=== PATIENT | female | born 1995 ===

== ENCOUNTER 2017-02-11 22:29 | Emergency (ER) | payer MEDICAID ==
[2017-02-11] MEDS ORDERED: Iohexol 240 (50 ml) PO STA (23:29)
[2017-02-11 23:46] LABS: BASO # 0.1 K/uL (0.0-0.2); BASO % 0.5 % (0.0-2.0); EOS # 0.3 K/uL (0.0-0.7); LYMPH # 5.5 K/uL (1.0-4.3); LYMPH % 40.6 % (20.0-40.0); MEAN CELL VOLUME 79.4 fL (81.0-99.0); MEAN CORPUSCULAR HEMOGLOBIN 25.3 pg (27.0-31.0); MEAN CORPUSCULAR HGB CONC 31.9 g/dL (33.0-37.0); MEAN PLATELET VOLUME 9.1 fL (7.2-11.7); MONO # 1.4 K/uL (0.0-0.8); MONO % 10.6 % (0.0-10.0); RED CELL DISTRIBUTION WIDTH 13.8 % (11.5-14.5); WHITE BLOOD COUNT 13.6 K/uL (4.8-10.8)
[2017-02-11 23:55] LABS: CHLORIDE 100 mmol/L (98-107); POTASSIUM 3.6 mmol/L (3.6-5.2); SODIUM 140 mmol/L (132-148)
[2017-02-11 23:57] LABS: ALB/GLOB RATIO 1.2 (1.0-2.1); AST/SGOT 85 U/L (14-36); BILIRUBIN,TOTAL 0.4 mg/dL (0.2-1.3); CARBON DIOXIDE 27 mmol/L (22-30); GFR AFRICAN-AMERICAN > 60; TOTAL PROTEIN 7.9 g/dL (6.3-8.3)
[2017-02-11 23:58] LABS: ALKALINE PHOSPHATASE 111 U/L (38-126); ALT/SGPT 138 U/L (9-52); BLOOD UREA NITROGEN 9 mg/dL (7-17); CALCIUM 9.2 mg/dl (8.6-10.4); GLUCOSE,RANDOM 88 mg/dL (65-105)
[2017-02-12 00:20] LABS: RBC URINE 2 /hpf (0-3); URINE BILIRUBIN NEGATIVE (NEGATIVE); URINE COLOR Yellow (YELLOW); URINE GLUCOSE (UA) NORMAL (Normal); URINE KETONE TRACE mg/dL (NEGATIVE); URINE LEUKOCYTE ESTERASE NEG Leu/uL (Negative); URINE PROTEIN NEGATIVE (NEGATIVE); URINE UROBILINOGEN NORMAL mg/dL (0.2-1.0); WBC URINE < 1 /hpf (0-5)
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
[2017-02-12] MEDS ORDERED: Iohexol 240 (50 ml) ONE (00:30)
[2017-02-12] MEDS ORDERED: Iohexol 350mg/ml 100 ML ONE (01:00)
[2017-02-12 01:08] LABS: URINE BLOOD TRACE (NEGATIVE)
[2017-02-12 02:09] VITALS: O2SAT 100
--- NOTE | 2017-02-12 02:51 | CT ---
EXAM: CT Abdomen and Pelvis With Intravenous Contrast CLINICAL HISTORY: 21 years old, female; Pain; Abdominal pain; Additional info: Abd pain TECHNIQUE: Axial computed tomography images of the abdomen and pelvis with intravenous contrast. This CT exam was performed using one or more of the following dose reduction techniques: automated exposure control, adjustment of the mA and/or kV according to patient size, and/or use of iterative reconstruction technique. Coronal and sagittal reformatted images were created and reviewed. CONTRAST: 100 mL of [id number] administered intravenously. EXAM DATE/TIME: 02/11/2017 11:29 PM COMPARISON: No relevant prior studies available. FINDINGS: The liver is normal. The spleen is normal. The pancreas is normal. No gallstones. No hydronephrosis or perinephric stranding. The bowel appears normal. A normal appendix is identified coronal images 63 through 67, axial images 53 through 59. Small scattered lymph nodes are noted in the periaortic region and right lower abdomen. IMPRESSION: No acute findings.
[2017-02-12 03:58] VITALS: BP 121/70; PULSE 92; RESP 20; TEMP 97.1
== END 2017-02-12 03:58 | disposition home or self-care (01) ==
LOC: C.ER 22:29
DX: N93.9 Abnormal uterine and vaginal bleeding, unspecified (principal)
CPT/HCPCS: 74177; 80053; 81001; 84703; 85025; 96374; 99285; J1885; Q9966; Q9967